=== PATIENT | female | born 1965 ===

== ENCOUNTER 2024-02-23 09:48 | Outpatient (AMB) | payer OTHER, SELFPAY ==
--- NOTE | 2024-02-23 10:01 | A.OFFVIS_ITS ---
Intake VS Expanded 02/23/24 10:02 02/24/24 22:53 Height 5 ft 1 in 5 ft 1 in Weight 261 lb 3.964 oz 261 lb BMI 49.4 49.3 Intake Visit Reasons: DM/LVM HPI Nutrition Presentation Details Pt presents for MNT for T2DM, obesity. The [facility] Equation Height 5 ft 1 in Weight 261 lb Resting Metabolic Rate 1704.71 Calculated Activity Level Sedentary Calories Needed to Maintain Weight 2044.65 Diagnosis Nutrition problem #1 food nutri know defi As related to (etiology) #1 diagnosis As evidenced by (sign/symptom) #1 knowledge deficit of diet Monitoring/Goals Nutrition problem monitoring level of knowledge/skill, glucose, fasting, total CHO intake, weight and oral fluids Nutrition goal/outcome list 3 CHO foods, wt loss 5lbs in 2 months and list 3 high fiber foods Outcome progress verbalized understanding Learning/Education Readiness to learn good Most Recent Diabetes Results: No Data to Display Assessment & Plan Assessment & Plan (1) T2DM (type 2 diabetes mellitus): Code(s): E11.9 - Type 2 diabetes mellitus without complications Plan: Wt: 118 Kg ( 02/2024 ) Est kcal needs as per MSJ: 2100 (40% carb, 30% protein/fat) Est fluid needs as per 25-30 ml/d: 3600 Est prot per day as per 1 g/kg bw: 118 Recommend fiber intake : 8-10 g per day and gradually increase to 25-28 g per day for women and 35-38 g for men or as tolerated Recommend sodium intake per day : less than 2000 mg Educated patient on: ( R = reviewed V = verbalizes understanding N/R = needs review N/A = not applicable * Food sources of carbohydrate, adequate serving sizes and its role in various health conditions: R * Differences between complex carbohydrates a simple carbohydrates, role of fiber in diet: R V N/R * Lean protein sources of foods: R V NR * Differences between types of fats and role in diet (mono on saturated fat fatty acids, saturated fatty acids, trans fats): R basic low fat * Food sources of sodium in salt and healthy modifications for heart health in kidney health: R V R/V * Vitamins and minerals: R V N/R * Healthy plate method concept: R * Physical activity: Benefits a precaution: R V N/R * Hypoglycemia protocol (rule of 15): R V N/R * Dietary prevention of Hyperglycemia: R V R/V Patient Instructions: Work on having 3 meals per day, reduce total carb to less than 60 g at meal for now following healthy plate method Choose low sugar beverages to have with your meals (water, dilted juice with water, milk ) Coding Level of Care Code Nutr Indiv Intake (07182) Diagnoses T2DM (type 2 diabetes mellitus) E11.9 Time Spent (min) 30
[2024-02-23 10:02] VITALS: BMI 49.4
[2024-02-24 22:53] VITALS: BMI 49.3
== END 2024-02-23 10:36 | disposition home or self-care (01) ==
PROVIDERS: PCP Internal Medicine; Visit Provider Dietitian, Registered
DX: E11.9 Type 2 diabetes mellitus without complications (principal)

== ENCOUNTER → 2024-02-23 09:48 | Outpatient (BNVA) | payer OTHER, SELFPAY | PROVIDERS: PCP Internal Medicine; Visit Provider Dietitian, Registered | DX: E11.9 Type 2 diabetes mellitus without complications (principal); E66.9 Obesity, unspecified; Z68.42 Body mass index [BMI] 45.0-49.9, adult; Z71.3 Dietary counseling and surveillance | CPT/HCPCS: 97802 ==